=== PATIENT | female | born 1960 | race Caucasian/White ===

== ENCOUNTER 2018-11-25 06:12 | Emergency (ER) | payer BC ==
[~2018-11-25] VITALS: Ht 147.3 cm; Wt 72.6 kg
[2018-11-25] MEDS ORDERED: NORCO 5-325 TA1 EAC1 PO (07:35)
[2018-11-25 07:37] VITALS: BP 163/85
== END 2018-11-25 07:37 | disposition home or self-care (01) ==
LOC: ER 06:12
DX: B02.9 Zoster without complications (principal); Z88.1 Allergy status to other antibiotic agents; Z88.0 Allergy status to penicillin; Z88.6 Allergy status to analgesic agent

== ENCOUNTER 2020-12-13 19:49 | Emergency (ER) | payer BC ==
[~2020-12-13] VITALS: Ht 147.3 cm; Wt 75.3 kg
[~2020-12-13 19:49] MED LIST: NORCO 5-325 TA1 EAC1 PO
[2020-12-13] MEDS ORDERED: TOPROL XL50 MG PO (19:55)
[2020-12-13] MEDS ORDERED: LISINOPRIL-HCT1 EAC2 PO (19:55)
[2020-12-13 22:24] LABS: ABSOLUTE NEUTROPHILS 9.4 thou/uL (1.4-8.2); BASOPHILS 0.3 % (0.0-2.0); EOSINOPHILS 1.4 % (0.0-3.0); HEMATOCRIT 41.4 % (37.0-47.0); HEMOGLOBIN 13.8 gm/dL (12.0-15.0); LYMPHOCYTES 24.3 % (24.0-44.0); MCH 27.8 pg (26.0-34.0); MCHC 33.3 g/dL (28.0-37.0); MCV 83.6 fL (80.0-100.0); MONOCYTES 4.3 % (1.0-8.0); PLATELET COUNT 345 thou/uL (150-400); POLYS 69.7 % (36.0-66.0); RBC 4.94 mil/uL (4.20-5.00); RDW 13.2 % (10.5-14.5); WBC 13.4 thou/uL (4.0-11.0)
[2020-12-13 22:28] LABS: CALCIUM 9.3 mg/dL (8.5-10.1); CREATININE 0.9 mg/dL (0.6-1.0); POTASSIUM 3.6 mmol/L (3.5-5.1)
[2020-12-13 22:34] LABS: TOTAL BILIRUBIN 0.2 mg/dL (0.2-1.0); TOTAL PROTEIN 8.3 g/dL (6.4-8.2)
[2020-12-14 00:59] VITALS: BP 138/68
== END 2020-12-14 01:00 | disposition home or self-care (01) ==
LOC: ER 19:49
PROVIDERS: Emergency Medicine
DX: K59.00 Constipation, unspecified (principal); I10 Essential (primary) hypertension; Z98.890 Other specified postprocedural states; Z90.711 Acquired absence of uterus with remaining cervical stump; Z90.49 Acquired absence of other specified parts of digestive tract; Z79.899 Other long term (current) drug therapy; Z88.1 Allergy status to other antibiotic agents; Z88.0 Allergy status to penicillin; Z88.8 Allergy status to other drugs, medicaments and biological substances